=== PATIENT | female | born 1960 | race Caucasian/White ===

== ENCOUNTER → 2024-02-18 07:22 | Outpatient (REF) | payer BC, SELFPAY | LOC: WDC 07:22 | PROVIDERS: ATTENDING PHYSICIAN Family Medicine; REFERRING PHYSICIAN Obstetrics & Gynecology Gynecology | DX: Z12.31 Encounter for screening mammogram for malignant neoplasm of breast (principal); M85.89 Other specified disorders of bone density and structure, multiple sites | CPT/HCPCS: 77063; 77067; 77080 ==

== ENCOUNTER → 2024-03-31 08:34 | Outpatient (REF) | payer BC, SELFPAY | LOC: HWRAD 08:34 | PROVIDERS: ATTENDING PHYSICIAN Family Medicine | DX: R51.9 Headache, unspecified (principal) | CPT/HCPCS: 70450 ==

== ENCOUNTER → 2024-06-30 11:53 | Outpatient (REF) | payer BC, SELFPAY | LOC: MRI 3T 11:53 | PROVIDERS: ATTENDING PHYSICIAN Psychiatry & Neurology Neurology; FAMILY PHYSICIAN Family Medicine | DX: G43.111 Migraine with aura, intractable, with status migrainosus (principal); R42 Dizziness and giddiness | CPT/HCPCS: 70553; A9575 ==

== ENCOUNTER → 2024-07-01 11:19 | Outpatient (REF) | payer BC, SELFPAY | LOC: PAVMRI 11:19 | PROVIDERS: ATTENDING PHYSICIAN Psychiatry & Neurology Neurology; FAMILY PHYSICIAN Family Medicine | DX: G43.111 Migraine with aura, intractable, with status migrainosus (principal); R42 Dizziness and giddiness | CPT/HCPCS: 70544; 70549; A9585 ==

== ENCOUNTER → 2024-07-13 10:17 | Outpatient (REF) | payer BC, SELFPAY | LOC: PAVMRI 10:17 | PROVIDERS: ATTENDING PHYSICIAN Psychiatry & Neurology Neurology; FAMILY PHYSICIAN Family Medicine | DX: M48.02 Spinal stenosis, cervical region (principal) | CPT/HCPCS: 72141 ==

== ENCOUNTER → 2025-02-20 07:30 | Outpatient (REF) | payer BC, SELFPAY | LOC: WDC 07:30 | PROVIDERS: ATTENDING PHYSICIAN Family Medicine | DX: Z12.31 Encounter for screening mammogram for malignant neoplasm of breast (principal) | CPT/HCPCS: 77063; 77067 ==